=== PATIENT | female | born 2005 | race Two or more races ===

== ENCOUNTER 2024-09-24 14:37 | Emergency (ER) | payer MEDICAID, SELFPAY ==
[2024-09-24 14:38] VITALS: BMI 20.6
[2024-09-24 14:51] VITALS: BP 103/70; PULSE 98; RESP 18; TEMP 36.7; O2SAT 97
--- NOTE | 2024-09-24 14:56 | XR_ITS ---
Examination: Abdomen sonogram, Limited Date and time of exam: September 24, 2024 1802 hours INDICATIONS: Upper abdominal pain and vomiting beginning 4 days ago Technique: Real-time tillman scale transabdominal sonographic images of the upper abdomen obtained. Findings: Normal gallbladder Normal common bile duct 0.2 cm. Pancreatic head 1.5 cm. Liver 12.2 cm smooth contour. Normal hepatopedal portal venous flow. Patent IVC IMPRESSION: Normal gallbladder Normal common bile duct
--- NOTE | 2024-09-24 14:57 | PD.EDABDPN ---
ED Abdominal Pain RME/HPI General Chief Complaint: Abdominal Pain Stated complaint: ABD PAIN Time seen by provider: 09/24/24 14:41 Arrival date/time: 09/24/24 14:37 Limitations: no limitations RME / HPI RME / HPI narrative: 18yo female with 4days vomiting and flank pain. Seen in clinic and told to come in and rule out gallstones. However mother states she thinks it is a UTI due to frequency of urination and poor water intake. No fever but does have nausea. No history of diabetes or otherwise immunocompromised state. Related Data Previous Rx's ?Medication ?Instructions ?Recorded cefuroxime axetil 500 mg tablet 500 mg PO BID #14 tabs 08/25/23 ciprofloxacin HCl 500 mg tablet 500 mg PO Q12H 10 days #20 tabs 09/24/24 (Cipro) ondansetron 4 mg disintegrating 4 mg PO Q8H PRN nausea and 09/24/24 tablet vomiting #10 tabs Allergies Allergy/AdvReac Type Severity Reaction Status Date / Time No Known Allergies Allergy Verified 10/14/23 02:00 Review of Systems Review of Systems Systems Reviewed: All systems reviewed, normal except as documented Constitutional Constitutional: Denies fever(s) Gastrointestinal Gastrointestinal: Reports as per HPI Genitourinary Genitourinary: Reports as per HPI ED Exam General Limitations: Present no limitations General appearance: Present alert and in no apparent distress Eye Eye exam: Present normal appearance, PERRL and EOMI Respiratory Respiratory exam: Present normal lung sounds bilaterally Cardiovascular Cardiovascular exam: Present regular rate, normal rhythm and normal heart sounds Abdominal Exam Abdominal exam: Present soft, tenderness (Bilateral flank pain, right upper quadrant pain) and normal bowel sounds Extremities Exam Extremities exam: Present normal inspection and full ROM Back Exam Back exam: Present normal inspection and full ROM Psychiatric Psychiatric exam: Present normal affect and normal mood Skin Skin exam: Present warm, dry, intact and normal color Course Quality Measures none Orders Category Date Time Status US gall bladder Stat Exams 09/24/24 14:56 Completed CBC Stat Lab 09/24/24 15:37 Completed CMP [Comprehensive Metabolic Panel] Stat Lab 09/24/24 15:37 Completed HCG,Qualitative Serum Stat Lab 09/24/24 15:37 Completed Lipase Stat Lab 09/24/24 15:37 Completed UA [Urinalysis] Stat Lab 09/24/24 16:15 Completed HYDROcodone*/APAP 5/325 [Sturgeon 5/325] Med 09/24/24 17:38 Discontinued 1 tab PO X1 ONE Ketorolac Inj [Toradol Inj] Med 09/24/24 14:56 Discontinued 30 mg IM X1 ONE Ondansetron Odt [Zofran Odt] Med 09/24/24 14:56 Discontinued 4 mg PO X1 ONE cefTRIAXone [Rocephin] 1,000 mg Med 09/24/24 17:38 Discontinued Lidocaine 1% 20 ml [Xylocaine 1% 20 ML] 2.1 ml IM X1 Vital Signs Vital signs: Vital Signs Temperature 98.1 F 09/24/24 14:51 Pulse Rate 98 09/24/24 14:51 Respiratory Rate 18 09/24/24 14:51 Blood Pressure 103/70 09/24/24 14:51 Pulse Oximetry (%) 97 09/24/24 14:51 Oxygen Delivery Method Room Air 09/24/24 14:51 Abdominal Pain MDM MDM Narrative MDM Narrative:: 18-year-old female worked up for abdominal pain that radiates to the flank. Elevation of WBCs negative ultrasound UA suggestive of UTI for that reason treated as such. Advise follow-up with PCP return to ER symptoms worsen Patient data External records reviewed:: [facility] previous records Clinical information provided by:: patient and family Social determinants that could affect healthcare access:: other (specify) (Sent over by clinic) Patient has the following chronic illnesses:: History of UTIs How is presenting disease/condition affected by chronic disease/condition?: exacerbated by Evaluation data The following diagnostics were reviewed and interpreted by me:: lab results and radiology exam(s) Lab and/or radiology exams considered but not ordered:: CT abdomen pelvis noncontrast considered stone however given age unlikely beneficial to change the course of action as likely has UTI. Interpretation Summary: Elevation of WBCs negative ultrasound UA suggestive of UTI for that reason treated as such. Medications / Prescriptions Medications or Prescriptions considered but not ordered:: Pain medicine for home was considered however given age and side effect while decided against it Medication administrations:: Medication Administration History Discontinued Medications Hydrocodone Bitart/Acetaminophen (Hydrocodone/Apap 5/325 Tablet) 1 tab PO X1 ONE Stop: 09/24/24 17:39 Last Admin: 09/24/24 17:46 Dose: 1 tab Documented By: EF Ceftriaxone Sodium 1,000 mg/ (Lidocaine HCl 2.1 ml) 0 mg IM X1 ONE Stop: 09/24/24 17:39 Last Admin: 09/24/24 17:46 Dose: 1,000 mg Documented By: EF Ketorolac Tromethamine (Ketorolac Inj 60 Mg/2 Ml Vial) 30 mg IM X1 ONE Stop: 09/24/24 14:57 Last Admin: 09/24/24 15:28 Dose: 30 mg Documented By: EF Ondansetron HCl (Ondansetron Odt 4 Mg Tabrap) 4 mg PO X1 ONE; Protocol Stop: 09/24/24 14:57 Last Admin: 09/24/24 15:28 Dose: 4 mg Documented By: EF Tolerated meds here Consultations Consultation(s) initiated? (list below): No Diagnosis Differential diagnosis abdominal pain: abdominal pain, acute appendicitis, calculus of kidney, diverticulitis, endometriosis, pancreatitis, small bowel obstruction and other (Gallstones, pyelonephritis) Most likely diagnosis given after review of the tests above:: UTI Vomiting Admission Indicated Admission indicated?: not indicated Admission Request Was there a request for admission?: No Disposition Plan Disposition Plan: Discharge Discharge Attestation Discharge Attestation: The patient and all family members were given an opportunity to ask questions and understood the discharge instructions. Discharge instructions specifically effects, indications for sooner follow up or return to the emergency department, and the expected course of current diagnosis. Patient condition: Stable Discharge Plan Plan Patient Disposition: HOME (Self Care) Discharge Disposition comment: f/u with pcp in 2-3days Prescriptions/Referrals Prescriptions/Med Rec: New ciprofloxacin HCl [Cipro] 500 mg tablet 500 mg PO Q12H 10 Days Qty: 20 0RF ondansetron 4 mg tablet,disintegrating 4 mg PO Q8H PRN (Reason: nausea and vomiting) Qty: 10 0RF No Action cefuroxime axetil 500 mg tablet 500 mg PO BID Qty: 14 0RF Referrals: No Primary/Family,Physician [Primary Care Provider] - In 1 week Problem List Clinical Impression: UTI (urinary tract infection), Vomiting Patient/Caregiver Discharge Instructions Education Materials: ED CYSTITIS Female Adult, ED Vomiting (Adult) Print Language: Romanian Stand Alone Forms: Lupe Award Info., Patient Portal Info Letter PA/ROOF TILE LAYER Supervising Physician PA/ROOF TILE LAYER Supervising Physician: Dr. Quinteros
[2024-09-24] MEDS: ONDANSETRON ODT 4 MG TABRAP PO (15:28)
[2024-09-24] MEDS: KETOROLAC INJ 60 MG/2 ML VIAL 30 MG IM (15:28)
[2024-09-24 15:48] LABS: Basophils % (Auto) 0 % (0-2.5); Eosinophils # (Auto) 0.1 Thou/mm3 (0.0-0.5); Eosinophils % (Auto) 1 % (0-10); Hematocrit 36.1 % (36.0-46.0); Hemoglobin 12.2 g/dL (12.0-16.0); Immature Granulocytes % (Auto) 0 % (0-0); Immature Granulocytes Auto 0.02 Thou/mm3 (0.00-0.00); Lymphocytes # (Auto) 1.2 Thou/mm3 (1.0-5.0); Lymphocytes % (Auto) 16 % (10-50); Mean Corpuscular HGB Conc 33.8 g/dl (31.0-37.0); Mean Corpuscular Hemoglobin 28.6 pg (25.0-35.0); Mean Corpuscular Volume 85 fL (80-100); Monocytes % (Auto) 12 % (0-12); Neutrophils # (Auto) 5.6 Thou/mm3 (1.8-7.7); Neutrophils % (Auto) 71 % (37-80); Nucleated Red Blood Cell % 0 /100 WBC (0); Platelet Count 177 Thou/mm3 (140-440); RDW Standard Deviation 40.8 fL (36.4-46.3); Red Blood Count 4.26 Miln/mm3 (4.00-5.20)
[2024-09-24 16:16] LABS: Alanine Aminotransferase 8 U/L (10-49); Albumin/Globulin Ratio 1.4 (1.2-2.2); Alkaline Phosphatase 68 U/L (46-116); Anion Gap 11 (7-16); BUN/Creatinine Ratio 12 Ratio (12-20); Bilirubin,Total 0.4 mg/dL (0.3-1.2); Blood Urea Nitrogen 12 mg/dL (9-23); Calcium 8.9 mg/dL (8.3-10.6); Calcium (Corrected) 8.9 mg/dL (8.5-10.1); Carbon Dioxide 24.1 mMol/L (20.0-31.0); Chloride 106 mMol/L (98-107); Estimated Creatinine Clearance 71.6 mL/min (>60); Globulin 2.8 gm/dL (2.3-3.5); Glucose 87 mg/dL (74-106); Lipase 25 U/L (12-53); Osmolality,Calculated 279 (275-295); Potassium 3.7 mMol/L (3.4-5.1); Sodium 141 mMol/L (136-145); Total Protein 6.8 gm/dL (5.7-8.2); eGFR > 60 See Note
[2024-09-24 16:17] LABS: Collection Type, Urine Clean Catch
--- NOTE | 2024-09-24 16:30 | PC.NURSE ---
CALL RECEIVED FROM LAB THAT PT'S CHART IS LOCKED AND SKURA WORKING ON IT. SO LAB UNABLE TO DOCUMENT RESULTS. HCG NEGATIVE PER LAB
[2024-09-24 16:36] LABS: Bilirubin,Urine Negative (Negative); Blood,Urine Trace (Negative); Color,Urine Drk-Yellow (Lt Yel-Yel); Glucose, Urine Negative (Negative); Ketones,Urine Negative (Negative); Leukocyte Esterase,Urine Positive (Negative); Nitrite,Urine Negative (Negative); PH,Urine 6.5 (5.0-7.0); Protein,Urine 1+ (Neg - Trace); RBC,Urine 9 /hpf (0-3); Specific Gravity,Urine 1.025 (1.001-1.035); Squamous Epithelial Cell,Urine 5 /hpf (0-5); WBC,Urine 31 /hpf (0-5)
[2024-09-24 16:40] LABS: HCG,Qualitative Serum Negative
[2024-09-24 16:42] LABS: Clarity,Urine Hazy (Clear/Hazy)
[2024-09-24] MEDS: HYDROcodone/APAP 5/325 TABLET 1 TAB PO (17:46)
[2024-09-24] MEDS: cefTRIAXone 1,000 MG, LIDOCAINE 1% 20 ML 2.1 ML IM (17:46)
[2024-09-24 17:54] VITALS: BP 118/78; PULSE 91; RESP 15; TEMP 36.7; O2SAT 98
== END 2024-09-24 17:59 | disposition home or self-care (01) ==
PROVIDERS: Physician Assistant; Emergency Provider Family Medicine
DX: N39.0 Urinary tract infection, site not specified (principal); R11.2 Nausea with vomiting, unspecified; R10.10 Upper abdominal pain, unspecified
CPT/HCPCS: 36415; 76705; 80053; 81001; 83690; 84703; 85025; 96372; 99284; J0696; J1885; J3490; Q0162; A9270